=== PATIENT | female | born 1940 | race Caucasian/White ===

== ENCOUNTER 2016-07-03 15:36 | Emergency (ER) | payer MEDICARE, BC ==
[2016-07-03] MEDS ORDERED: MORPHINE SULFATE 10 MG/ML INJ IV ONE ×2 (16:32→18:16)
--- NOTE | 2016-07-03 16:37 | ER Document Report ---
ED General - General Chief Complaint: Fall Stated Complaint: FALL/HAND PAIN Time seen by provider: 16:34 Mode of Arrival: Medic Information source: Patient Notes: 75-year-old female fell on a staircase down 7-10 steps shortly prior to arrival. She reports no loss of consciousness and did not strike her head. She complains about pain to the lateral right thigh and pain to the right wrist and was noted by EMS to have an obvious deformity to the right wrist. Patient has no complaints of pain in the left arm or leg and denies chest pain, abdominal pain, back pain, or shortness of breath. Physical Exam: General: Alert, appears well. HEENT: Normocephalic. Atraumatic. PERRLA. Extraocular movements intact. Oropharynx clear. No otorhinorrhea Neck: Supple. Non-tender. Respiratory: No respiratory distress. Clear and equal breath sounds bilaterally. Cardiovascular: Regular rate and rhythm. Abdominal: Normal Inspection. Soft, non-tender. No distension. Normal Bowel Sounds. Back: Non-tender. No deformity or step off. Left upper and lower extremities good range of motion without obvious deformity. Right upper extremity is in sling and splint with obvious bruising and deformity to the right wrist. Does have palpable radial and ulnar pulses. Right lower extremity has mild discomfort palpation of the midshaft of the right femur laterally there is no ecchymosis present. She has 2+ pulses all 4 extremities and brisk capillary refill Neurological: Speech clear mentation normal Psychological: Normal affect. Normal Mood. Skin: Warm. Dry. Normal color. TRAVEL OUTSIDE OF THE [place] IN LAST 30 DAYS: No - Related Data Allergies/Adverse Reactions: codeine [Codeine] Allergy (Intermediate, Verified 12/12/14 13:28) Hives erythromycin base [Erythromycin Base] Allergy (Intermediate, Verified 12/12/14 13:28) "crazy",crying Past Medical History - Social History Smoking Status: Never Smoker Family History: Reviewed & Not Pertinent - Past Medical History Cardiac Medical History: Reports: Hx Heart Attack - [place] age undetermined, Hx Hypertension Denies: Hx Coronary Artery Disease Pulmonary Medical History: Reports: Hx Asthma - uses O2 at ayesha time only, Hx Bronchitis - prior to xolair tx, Hx Pneumonia Denies: Hx COPD Neurological Medical History: Denies: Hx Cerebrovascular Accident, Hx Seizures Musculoskeltal Medical History: Reports Hx Arthritis - DDD low back Past Surgical History: Reports: Hx Cholecystectomy - Immunizations Hx Diphtheria, Pertussis, Tetanus Vaccination: Yes Hx Pneumococcal Vaccination: 04/28/04 Review of Systems - Review of Systems Constitutional: denies: Chills, Fever EENT: denies: Ear pain, Throat pain Cardiovascular: denies: Chest pain, Dyspnea, Syncope Respiratory: denies: Cough, Short of breath Gastrointestinal: denies: Abdominal pain, Nausea, Vomiting Female Genitourinary: Post menopausal Musculoskeletal: denies: Back pain Hematologic/Lymphatic: denies: Swollen glands Neurological/Psychological: denies: Weakness, Numbness Physical Exam - Vital signs Vitals: Temp Pulse Resp BP Pulse Ox 98.7 F 76 15 159/63 H 96 07/03/16 15:42 07/03/16 15:42 07/03/16 15:42 07/03/16 15:42 07/03/16 15:42 Course - Re-evaluation Re-evalutation: 07/03/16 18:25 Case was discussed with Dr. Solano orthopedics. He requests patient be splinted and come to the office tomorrow as fracture is likely going to require operative reduction patient will be splinted here provided with a sling discharged with medication for pain and given outpatient follow-up instructions - Vital Signs Vital signs: Temp Pulse Resp BP Pulse Ox 98.7 F 76 15 159/63 H 96 07/03/16 15:42 07/03/16 15:42 07/03/16 15:42 07/03/16 15:42 07/03/16 15:42 - Diagnostic Test Radiology reviewed: Image reviewed, Reports reviewed Discharge - Discharge Clinical Impression: Wrist fracture, closed Qualifiers: Encounter type: initial encounter Laterality: right Qualified Code(s): S62.101A - Fracture of unspecified carpal bone, right wrist, initial encounter for closed fracture Contusion of right thigh Qualifiers: Encounter type: initial encounter Qualified Code(s): S70.11XA - Contusion of right thigh, initial encounter Condition: Stable Disposition: HOME, SELF-CARE Additional Instructions: Sling to be Used You are to use a sling. This is to rest the area, and to prevent it from hanging downward. Use this sling for at least 48 hours (or longer if so instructed by the doctor). Some types of splints will break if not supported by the sling, so the sling must be used as long as the splint. Ice can be placed inside the sling over the injured area. Once you remove the sling, you should not encounter pain when you use the arm and hand. If you do feel pain beneath the cast or splint, you must continue use of the sling. Splint Pending Casting Your injury can't be casted until the swelling has subsided. Therefore, a temporary splint has been placed to protect the injury. Full use of an injured area is not possible in a splint. You should follow the doctor's instructions concerning rest, ice, and elevation of the injury. Never do anything which causes pain under the splint. Keep the splint on ALL THE TIME until you return for casting. If there is unexpected severe pain, or numbness, discoloration, or swelling beyond the splint, you should return at once. I have spoken with Dr. Panda Arizmendi on-call for orthopedics. He requested that you have a splint placed here wrist fracture and contact his office tomorrow for follow-up and possible surgery. Prescriptions: Hydrocodone/Acetaminophen [Vicodin 5-300 mg Tablet] 1 each PO Q6HP PRN #20 tablet PRN Reason: For Pain Referrals: IRISH HAMILTON MD [Primary Care Provider] - Follow up as needed PANDA SYKES MD [ACTIVE STAFF] - Follow up tomorrow
[2016-07-03 19:28] VITALS: BP 163/68
[2016-07-03] MEDS ORDERED: HYDROCODONE/ACETAMINOPHEN 5-325 MG TABLET PO ONE (19:28)
== END 2016-07-03 19:30 | disposition home or self-care (01) ==
LOC: ER 15:36
DX: S62.101A Fracture of unspecified carpal bone, right wrist, initial encounter for closed fracture (principal); S70.11XA Contusion of right thigh, initial encounter; W10.9XXA Fall (on) (from) unspecified stairs and steps, initial encounter; I10 Essential (primary) hypertension; J45.909 Unspecified asthma, uncomplicated; Z90.49 Acquired absence of other specified parts of digestive tract; Z88.6 Allergy status to analgesic agent; Z88.3 Allergy status to other anti-infective agents; I25.2 Old myocardial infarction
CPT/HCPCS: 99283; 96374; 73070; 73552; 73090; 73110; J2270; A9270

== ENCOUNTER → 2016-07-09 | Outpatient (CLI) | payer MEDICARE, BC ==
[2016-07-09 11:47] LABS: APPEARANCE,URINE CLEAR; BILIRUBIN,URINE NEGATIVE (NEGATIVE); GLUCOSE, URINE NEGATIVE (NEGATIVE); KETONES,URINE NEGATIVE (NEGATIVE); LEUKOCYTE ESTERASE,URINE TRACE (NEGATIVE); NITRITE,URINE NEGATIVE (NEGATIVE); PROTEIN,URINE NEGATIVE (NEGATIVE); URINE SPECIFIC GRAVITY 1.005; UROBILINOGEN,URINE NEGATIVE mg/dL (<2.0)
[2016-07-09 11:49] LABS: ABSOLUTE LYMPHOCYTES (AUTO) 1.5 10^3/uL (0.5-4.7); ABSOLUTE MONOCYTES (AUTO) 0.4 10^3/uL (0.1-1.4); BASOPHILS % (AUTO) 0.6 % (0-2); EOSINOPHILS % (AUTO) 0.6 % (0-6); HEMATOCRIT 38.2 % (36.0-47.0); HEMOGLOBIN 13.6 g/dL (12.0-15.5); HGB HCT DIFFERENCE 2.6; LYMPHOCYTES % (AUTO) 21.4 % (13-45); MEAN CORPUSCULAR HEMOGLOBIN 31.7 pg (27.0-33.4); MEAN CORPUSCULAR HGB CONC 35.6 g/dL (32.0-36.0); MEAN CORPUSCULAR VOLUME 89 fl (80-97); MONOCYTES % (AUTO) 5.9 % (3-13); RED BLOOD COUNT 4.29 10^6/uL (3.72-5.28); RED CELL DISTRIBUTION WIDTH 13.6 % (11.5-14.0); SEGMENTED NEUTROPHILS % (AUTO) 71.5 % (42-78)
[2016-07-09 12:04] LABS: ANION GAP 15 (5-19); BLOOD UREA NITROGEN 15 mg/dL (7-20); CALCIUM 10.4 mg/dL (8.4-10.2); CARBON DIOXIDE 28 mmol/L (22-30); CHLORIDE 98 mmol/L (98-107); CREATININE RESULT 0.78 mg/dL (0.52-1.25); GLUCOSE 119 mg/dL (75-110); POTASSIUM 4.1 mmol/L (3.6-5.0); SODIUM 140.5 mmol/L (137-145)
== END ==
LOC: OD 10:52
PROVIDERS: ATTEND Orthopaedic Surgery
DX: Z01.811 Encounter for preprocedural respiratory examination (principal); Z01.818 Encounter for other preprocedural examination; Z01.89 Encounter for other specified special examinations
CPT/HCPCS: 36415; 71020; 80048; 81001; 85025

== ENCOUNTER 2016-07-11 09:49 | Day surgery (SDC) | payer MEDICARE, BC ==
[~2016-07-11 09:49] MED LIST: CEFAZOLIN 2 GM/D5W RTU 2 GM/50 ML RTUPB IV PRN
[2016-07-11] MEDS ORDERED: LIDOCAINE 2%/EPINEPHRINE INJ 20 ML VIAL ONE (11:00)
[2016-07-11] MEDS ORDERED: LIDOCAINE 2% INJ (20 MG/ML) 20 ML MDV ONE (11:01)
[2016-07-11] MEDS ORDERED: ROPIVACAINE HCL 0.5% INJ/PF (5 MG/1 ML) 30 ML SDV ONE (11:01)
[2016-07-11] MEDS ORDERED: GLYCOPYRROLATE INJ 0.4 MG/2 ML VIAL ONE (11:44)
[2016-07-11] MEDS ORDERED: SUCCINYLCHOLINE CHLORIDE INJ 200 MG/10 ML VIAL ONE (11:44)
[2016-07-11] MEDS ORDERED: MIDAZOLAM 2 MG/2 ML INJ ONE ×3 (12:13→12:25)
[2016-07-11] MEDS ORDERED: KETAMINE HCL INJ 500 MG/10 ML VIAL ONE (12:24)
[2016-07-11] MEDS ORDERED: DEXAMETHASONE SOD PHOSPHATE INJ 4 MG/1 ML VIAL ONE (12:24)
[2016-07-11] MEDS ORDERED: ONDANSETRON HCL INJ/PF 4 MG/2 ML SDV ONE (12:24)
[2016-07-11] MEDS ORDERED: PROPOFOL INJ 200 MG/20 ML VIAL IV ONE (12:25)
[2016-07-11] MEDS ORDERED: ACETAMINOPHEN 100 ML IV ONE (13:09)
[2016-07-11] MEDS ORDERED: MEPERIDINE HCL/PF INJ 25 MG/1 ML DISP.SYRIN IV PRN (13:33)
[2016-07-11] MEDS ORDERED: PROMETHAZINE HCL INJ 25 MG/1 ML VIAL IV PRN ×2 (13:33)
[2016-07-11] MEDS ORDERED: DIPHENHYDRAMINE HCL 50 MG/ML VIAL IV PRN (13:33)
[2016-07-11] MEDS ORDERED: FENTANYL CITRATE INJ/PF 100 MCG/2 ML AMPUL IV PRN ×3 (13:33)
[2016-07-11] MEDS ORDERED: MORPHINE SULFATE 10 MG/ML INJ IV PRN (13:33)
[2016-07-11] MEDS ORDERED: BUPIVACAINE HCL 0.25 % INJ/PF (2.5 MG/1 ML) 30 ML VIAL ONE (14:06)
--- NOTE | 2016-07-11 14:50 | Operative Report ---
Operative Report DATE OF SURGERY: 07/11/16 PREOPERATIVE DIAGNOSIS: Comminuted and displaced right distal radius fracture POSTOPERATIVE DIAGNOSIS: Same OPERATION: ORIF of right distal radius fracture SURGEON: PANDA DANIELSON ANESTHESIA: GA TISSUE REMOVED OR ALTERED: None COMPLICATIONS: None ESTIMATED BLOOD LOSS: 25 mL INTRAOPERATIVE FINDINGS: As above PROCEDURE: Procedure In Detail: Patient was seen and evaluated in the preoperative holding area. The right upper extremity was initialized and marked. Patient received 2g of Ancef IV for bacterial prophylaxis. Patient was taken back to the operative room where transferred to the operative table and placed under general anesthesia. Once they were adequately anesthetized and a nonsterile tourniquet was placed on her right upper extremity. A surgical team debriefing was performed ensuring all instrumentation was available, the surgical procedure was discussed with possible concerns reviewed. The right upper extremity was prepped with chlorhexidine and alcohol and draped in a sterile fashion. A timeout was done identifying correct patient, procedure and extremity everyone in attendance agree with this and verbalized no concerns.The extremity was exsanguinated the tourniquet was inflated to 250 mmHg. A longitudinal skin incision was made via a volar approach of Harvey along the FCR tendon sheath. The FCR tendon sheath was opened and the FCR retracted ulnarly, the palmar cutaneous patient median nerve was identified and protected throughout the entirety of the case. The radial artery was identified and retracted radially. Dissection was done down to the FPL which was carefully sweeped ulnarly. This brought me to the pronator quadratus which was elevated off of the distal radius via sharp dissection with a 15 blade to allow later repair. The fracture was then identified and a gentle reduction was performed. A near anatomic reduction was then obtained and a Irina 3 hole volar distal radius plate was then placed into position and fixated with a K wire proximally x2. AP and lateral radiographs were then obtained demonstrating appropriate placement of the plate and near anatomic reduction of the fracture. I then used a large reduction tenaculum bringing the plate down to bone distally. I drilled the near cortex and placed a cortical screw bringing the plate further down to bone, avoiding any liftoff of the plate from the volar cortex that could cause flexor tendon irritation post-operativley. I then drilled the near cortex and to but not thru the far cortex and measured the appropriate size screw, locking screws were then placed in the remaining holes. The previous cortex screw was removed and replaced with a locking screw. I then drilled 2 additional screws were placed into the styloid giving further stability to the radial styloid piece. AP and lateral radius were then done confirming appropriate placement of plate with no evidence of penetration intra-articular or within the DRUJ. I then turned my attention to the proximal screws. I drilled bicortically bringing the plate down to bone with a cortex screw. The remaining 2 holes proximally were drilled bicortically placing the appropriate size cortex and the proximal most hole and a locking screw in the distal shaft hole. AP and lateral radiographs were done confirming appropriate placement of the plate and reduction of the fracture there was protestant of radial height, radial inclination and volar tilt. No evidence of dorsal screw prominence or intra-articular penetration of the DRUJ or radiocarpal joint. I then copious irrigated the wound with normal saline. There was no evidence of DRUJ instability on examination, No crepitus with range of motion at the radiocarpal joint or DRUJ. I then closed the pronator quadratus with interrupted 3-0 Monocryl suture. Subcutaneous tissues were closed with interrupted 3-0 Vicryl suture. The skin was closed with 3-0 nylon suture. 10 mL of 0.5% Marcaine were injected for postoperative pain control. The tourniquet was then deflated. Was dressed with sterile 4 x 4's and patient was placed in a well-padded volar splint with bias wrap. Sponge counts, instrument counts and needle counts were correct. There was no intraoperative complications patient tolerated procedure well stable to PACU. Postoperative plan: Patient will be switched to a removal brace at her first postoperative followup visit and begin range of motion. She is encouraged to start vitamin C 500 mg daily for 51 days. Will obtain radiographs at followup of the wrist.
[2016-07-11] MEDS ORDERED: OXYCODONE-ACETAMINOPHEN 5-325 MG TABLET PO PRN ×2 (14:53)
--- NOTE | 2016-07-11 14:53 | PDOC DISCHARGE SUMMARY ---
Discharge Summary (SDC) - Discharge Final Diagnosis: ORIF of right distal radius fracture Date of Surgery: 07/11/16 Discharge Date: 07/11/16 Condition: Good Treatment or Instructions: Keep splint and dressing dry clean and intact until follow-up in 2 weeks. Mild weight-bear right upper extremity Prescriptions: Oxycodone HCl/Acetaminophen [Percocet 5-325 mg Tablet] 1 - 2 tab PO ASDIR PRN # 60 tablet PRN Reason: Discharge Diet: As Tolerated Respiratory Treatments at Home: Deep Breathing/Coughing Discharge Activity: No Lifting/Push/Pulling, Walk Frequently, Other - Keep right upper extremity elevated Report the Following to Your Physician Immediately: Shortness of Breath, Vomiting, Increase in Pain, Fever over 101 Degrees, Unusual Bleeding, Redness, Swelling, Warmth, Drainage-Yellow, Drainage-Green, Drainage-Foul Smelling
[2016-07-11 18:01] VITALS: BP 133/75
== END 2016-07-11 17:15 | disposition home or self-care (01) ==
LOC: OROUT 09:49
PROVIDERS: ATTEND Orthopaedic Surgery
PROC: 0PSH04Z Reposition Right Radius with Internal Fixation Device, Open Approach (ICD-10-PCS; principal; 2016-07-11 12:00)
DX: S52.531D Colles' fracture of right radius, subsequent encounter for closed fracture with routine healing (principal); W10.8XXA Fall (on) (from) other stairs and steps, initial encounter; Y92.009 Unspecified place in unspecified non-institutional (private) residence as the place of occurrence of the external cause; J44.9 Chronic obstructive pulmonary disease, unspecified; I20.9 Angina pectoris, unspecified; I50.9 Heart failure, unspecified; M19.90 Unspecified osteoarthritis, unspecified site; E11.9 Type 2 diabetes mellitus without complications; H54.8 Legal blindness, as defined in USA; I10 Essential (primary) hypertension; Z88.5 Allergy status to narcotic agent; Z88.1 Allergy status to other antibiotic agents; Z88.8 Allergy status to other drugs, medicaments and biological substances; Z79.899 Other long term (current) drug therapy; Z79.84 Long term (current) use of oral hypoglycemic drugs
CPT/HCPCS: 82962; 73100; 25607; J2795; J2250; J3490 ×3; J1100; J0330; J2405; J2704; J0690; J0131; 01830; C1713

== ENCOUNTER → 2016-10-04 | Outpatient (CLI) | payer MEDICARE, BC ==
[2016-10-04 14:23] LABS: ANION GAP 17 (5-19); BLOOD UREA NITROGEN 13 mg/dL (7-20); CALCIUM 9.6 mg/dL (8.4-10.2); CARBON DIOXIDE 26 mmol/L (22-30); CHLORIDE 100 mmol/L (98-107); CHOLESTEROL 218.82 mg/dL (0-200); CREATININE RESULT 0.91 mg/dL (0.52-1.25); Direct HDL 36 mg/dL (>40); GLUCOSE 96 mg/dL (75-110); POTASSIUM 4.1 mmol/L (3.6-5.0); SODIUM 142.8 mmol/L (137-145); TRIGLYCERIDES 170 mg/dL (<150)
[2016-10-04 14:42] LABS: DIRECT LDL 128 mg/dL (<100)
== END ==
LOC: OD 12:52
PROVIDERS: ATTEND Internal Medicine Cardiovascular Disease
DX: E78.00 Pure hypercholesterolemia, unspecified (principal); Z79.899 Other long term (current) drug therapy
CPT/HCPCS: 36415; 80048; 80061

== ENCOUNTER 2017-10-08 17:35 | Inpatient (IN) | payer MEDICARE, BC ==
[2017-10-08] MEDS ORDERED: NORMAL SALINE 1000 ML 1,000 ML IV ONE (19:01)
[2017-10-08] MEDS ORDERED: ONDANSETRON 4 MG TAB.RAPDIS PO ONE (19:01)
--- NOTE | 2017-10-08 19:03 | ER Document Report ---
ED Medical Screen (RME) - General Chief Complaint: General Weakness Stated Complaint: WEAKNESS Time Seen by Provider: 10/08/17 18:57 TRAVEL OUTSIDE OF THE [place] IN LAST 30 DAYS: No - HPI Notes: 10/08/17 19:02 Diarrhea nausea vomiting generalized weakness since Friday - Related Data Allergies/Adverse Reactions: codeine [Codeine] Allergy (Intermediate, Verified 10/08/17 17:36) Hives erythromycin base [Erythromycin Base] Allergy (Intermediate, Verified 10/08/17 17:36) "crazy",crying Past Medical History - Past Medical History Cardiac Medical History: Reports: Hx Heart Attack - [place] age undetermined, Hx Hypertension Denies: Hx Coronary Artery Disease Pulmonary Medical History: Reports: Hx Asthma - uses O2 at ayesha time only, Hx Bronchitis - prior to xolair tx, Hx Pneumonia Denies: Hx COPD Neurological Medical History: Denies: Hx Cerebrovascular Accident, Hx Seizures Musculoskeltal Medical History: Reports Hx Arthritis - DDD low back Past Surgical History: Reports: Hx Cholecystectomy - Immunizations Hx Diphtheria, Pertussis, Tetanus Vaccination: Yes Review of Systems - Review of Systems Gastrointestinal: Diarrhea, Nausea, Vomiting -: Yes All other systems reviewed and negative Physical Exam - Vital signs Vitals: Temp Pulse Resp BP Pulse Ox 98.2 F 76 20 121/57 L 93 10/08/17 17:49 10/08/17 17:49 10/08/17 17:49 10/08/17 17:49 10/08/17 17:49 - Respiratory Respiratory status: No respiratory distress Chest status: Nontender Breath sounds: Normal Chest palpation: Normal Course - Vital Signs Vital signs: Temp Pulse Resp BP Pulse Ox 98.2 F 76 20 121/57 L 93 10/08/17 17:49 10/08/17 17:49 10/08/17 17:49 10/08/17 17:49 10/08/17 17:49 Doctor's Discharge - Discharge Referrals: IRISH HAMILTON MD [Primary Care Provider] - Follow up as needed
[2017-10-08 19:37] LABS: ABSOLUTE EOSINOPHILS # (AUTO) 0.1 10^3/uL (0.0-0.6); ABSOLUTE LYMPHOCYTES (AUTO) 1.2 10^3/uL (0.5-4.7); ABSOLUTE MONOCYTES (AUTO) 1.2 10^3/uL (0.1-1.4); ABSOLUTE NEUT (AUTO) 5.6 10^3/uL (1.7-8.2); BASOPHILS % (AUTO) 0.4 % (0-2); EOSINOPHILS % (AUTO) 0.9 % (0-6); HEMATOCRIT 40.3 % (36.0-47.0); HEMOGLOBIN 14.4 g/dL (12.0-15.5); LYMPHOCYTES % (AUTO) 15.2 % (13-45); MEAN CORPUSCULAR HEMOGLOBIN 31.5 pg (27.0-33.4); MEAN CORPUSCULAR HGB CONC 35.7 g/dL (32.0-36.0); MEAN CORPUSCULAR VOLUME 88 fl (80-97); MONOCYTES % (AUTO) 14.7 % (3-13); PLATELET COUNT 288 10^3/uL (150-450); RED BLOOD COUNT 4.57 10^6/uL (3.72-5.28); SEGMENTED NEUTROPHILS % (AUTO) 68.8 % (42-78); TOTAL CELLS COUNTED % (AUTO) 100 %; WHITE BLOOD COUNT 8.1 10^3/uL (4.0-10.5)
[2017-10-08 19:54] LABS: ALANINE AMINOTRANSFERASE 17 U/L (9-52); ALBUMIN 4.6 g/dL (3.5-5.0); ALKALINE PHOSPHATASE 75 U/L (38-126); ANION GAP 19 (5-19); ASPARTATE AMINO TRANSFERASE 19 U/L (14-36); BILIRUBIN,DIRECT 0.4 mg/dL (0.0-0.4); BILIRUBIN,TOTAL 0.6 mg/dL (0.2-1.3); BLOOD UREA NITROGEN 38 mg/dL (7-20); CALCIUM 9.5 mg/dL (8.4-10.2); CARBON DIOXIDE 24 mmol/L (22-30); CHLORIDE 96 mmol/L (98-107); GLUCOSE 122 mg/dL (75-110); LIPASE 69.9 U/L (23-300); POTASSIUM 3.4 mmol/L (3.6-5.0); SODIUM 138.9 mmol/L (137-145); TOTAL PROTEIN 7.7 g/dL (6.3-8.2)
--- NOTE | 2017-10-08 20:37 | ER Document Report ---
ED Dizziness/Weakness - General Mode of Arrival: Ambulatory Information source: Patient TRAVEL OUTSIDE OF THE [place] IN LAST 30 DAYS: No <BRANDON PHIPPS - Last Filed: 10/08/17 22:48> <ALENA VELIZ - Last Filed: 10/09/17 01:35> - General Chief Complaint: General Weakness Stated Complaint: WEAKNESS Time Seen by Provider: 10/08/17 18:57 Notes: 77 y.o female presents to the ED with nausea, abd pain and diarrhea of onset Friday night, October 05 2017. Pt reports not being able to eat or drink much since the onset of her sx but reports that she was able to eat a banana yesterday. Pt admits some frequent urinary urgency but has been unable to urinate much. Pt denies any known fever or vomiting. She denies any nausea or abd pain currently. Pt reports a PSHx of abd hernia repair and a cholecystectomy but no recent abd surgeries. Pt denies any hx of colon infections. Pt's PCP is Dr. Abarca. (BRANDON PHIPPS) - Related Data Allergies/Adverse Reactions: codeine [Codeine] Allergy (Intermediate, Verified 10/08/17 17:36) Hives erythromycin base [Erythromycin Base] Allergy (Intermediate, Verified 10/08/17 17:36) "crazy",crying Past Medical History - General Information source: Patient - Social History Smoking Status: Never Smoker Chew tobacco use (# tins/day): No Frequency of alcohol use: None Drug Abuse: None Family History: Reviewed & Not Pertinent Patient has suicidal ideation: No Patient has homicidal ideation: No - Past Medical History Cardiac Medical History: Reports: Hx Heart Attack - [place] age undetermined, Hx Hypertension Pulmonary Medical History: Reports: Hx Asthma - uses O2 prn, Hx Bronchitis - prior to xolair tx, Hx Pneumonia Renal/ Medical History: Reports: Hx End Stage Renal Disease. Denies: Hx Peritoneal Dialysis Musculoskeltal Medical History: Reports Hx Arthritis - DDD low back Past Surgical History: Reports: Hx Cholecystectomy, Other - hernia repair - Immunizations Hx Diphtheria, Pertussis, Tetanus Vaccination: Yes Hx Pneumococcal Vaccination: 04/28/04 <BRANDON PHIPPS - Last Filed: 10/08/17 22:48> Review of Systems - Review of Systems Constitutional: See HPI. denies: Fever EENT: No symptoms reported Cardiovascular: No symptoms reported Respiratory: No symptoms reported Gastrointestinal: See HPI, Abdominal pain, Diarrhea, Nausea. denies: Vomiting Genitourinary: See HPI, Urgency, Retention Female Genitourinary: No symptoms reported Musculoskeletal: No symptoms reported Skin: No symptoms reported Hematologic/Lymphatic: No symptoms reported Neurological/Psychological: No symptoms reported -: Yes All other systems reviewed and negative <BRANDON PHIPPS - Last Filed: 10/08/17 22:48> Physical Exam <BRANDON PHIPPS - Last Filed: 10/08/17 22:48> <ALENA VELIZ - Last Filed: 10/09/17 01:35> - Vital signs Vitals: Temp Pulse Resp BP Pulse Ox 98.2 F 76 20 121/57 L 93 10/08/17 17:49 10/08/17 17:49 10/08/17 17:49 10/08/17 17:49 10/08/17 17:49 - Notes Notes: Physical Exam: General: Alert, appears well. HEENT: Normocephalic. Atraumatic. PERRL. Bilateral nystagmus at baseline. Dry mucous membranes. Neck: Supple. Non-tender. Respiratory: No respiratory distress. Clear and equal breath sounds bilaterally. Cardiovascular: Regular rate and rhythm. Abdominal: Normal Inspection. Non-tender. No distension. Normal Bowel Sounds. Back: Non-tender. No deformity or step off. Extremities: Moves all four extremities. Upper extremities: Normal inspection. Normal ROM. Lower extremities: Normal inspection. No edema. Normal ROM. Neurological: Normal cognition. AAOx3. Normal speech. Psychological: Normal affect. Normal Mood. Skin: Warm. Dry. Normal color. (BRANDON PHIPPS) Course - Laboratory Result Diagrams: 10/08/17 19:28 10/08/17 19:28 <BRANDON PHIPPS - Last Filed: 10/08/17 22:48> - Laboratory Result Diagrams: 10/08/17 19:28 10/08/17 19:28 <ALENA VELIZ - Last Filed: 10/09/17 01:35> - Re-evaluation Re-evalutation: 10/08/17 20:[address] Mao in person who agrees to admit pt. (BRANDON PHIPPS) Patient is a 77-year-old female who comes in with vomiting and diarrhea over the last 4 days. Patient ate a banana yesterday but has had difficulty keeping anything down today due to nausea. Patient's baseline creatinine is 0.9 as of last year. Today it is 2.85. Patient does not have any abdominal pain or tenderness. Due to her acute renal insufficiency and age, patient will be kept for IV fluid resuscitation and monitoring of her kidneys for improvement. Patient and family are agreeable to this plan. Stable time of admission to the hospitalist service. Of note, we have been unable to get urine. Patient did not want to do catheter. States that she has had some dribbling while she has been in the emergency department. Stool culture ordered but no stool obtained yet. (ALENA VELIZ) - Vital Signs Vital signs: Temp Pulse Resp BP Pulse Ox 98.5 F 62 14 112/47 L 96 10/09/17 00:47 10/09/17 00:47 10/09/17 00:47 10/09/17 00:47 10/09/17 00:47 - Laboratory Laboratory results interpreted by me: 10/08/17 10/08/17 19:28 19:28 Monocytes % 14.7 H Potassium 3.4 L Chloride 96 L BUN 38 H Creatinine 2.85 H Est GFR ( Amer) 19 L Est GFR (Non-Af Amer) 16 L Glucose 122 H Discharge <BRANDON PHIPPS - Last Filed: 10/08/17 22:48> - Discharge Admitting Provider: Hospitalist - [facility] Unit Admitted: Telemetry <ALENA VELIZ - Last Filed: 10/09/17 01:35> - Discharge Clinical Impression: Dehydration, Acute renal insufficiency, Hypokalemia Vomiting Qualifiers: Vomiting type: unspecified Vomiting Intractability: non-intractable Nausea presence: with nausea Qualified Code(s): R11.2 - Nausea with vomiting, unspecified Diarrhea Qualifiers: Diarrhea type: unspecified type Qualified Code(s): R19.7 - Diarrhea, unspecified Condition: Stable Disposition: ADMITTED INPATIENT Scribe Attestation: 10/09/17 01:35 I personally performed the services described in the documentation, reviewed and edited the documentation which was dictated to the scribe in my presence, and it accurately records my words and actions. (ALENA VELIZ) Scribe Documentation - Scribe Written by Marylu:: Marylu Argueta [id number]/08/[id number] acting as scribe for :: Rosa <BRANDON PHIPPS - Last Filed: 10/08/17 22:48>
[2017-10-08] MEDS ORDERED: ACETAMINOPHEN 325 MG TABLET PO PRN (20:57)
[2017-10-08] MEDS ORDERED: ONDANSETRON HCL INJ/PF 4 MG/2 ML SDV IV PRN (20:57)
[2017-10-08] MEDS ORDERED: DEXTROSE 50%-WATER 25 GM/50 ML DISP.SYRIN IV PRN ×2 (21:02)
[2017-10-08] MEDS ORDERED: GLUCAGON,HUMAN RECOMB 1 MG INJ IM PRN (21:02)
[2017-10-08] MEDS ORDERED: DEXTROSE 40% GEL 15 GM TUBE PO PRN ×2 (21:02)
[2017-10-08] MEDS ORDERED: INSULIN LISPRO 100 UNIT/ML 3 ML VIAL SUBCUT PRN (21:02)
--- NOTE | 2017-10-08 21:13 | PDOC H&P ---
History of Present Illness Admission Date/PCP: IRISH HAMILTON MD History of Present Illness: DEMETRIS MOSS is a 77 year old female patient with past medical history of hypertension, CHF, borderline diabetes mellitus and legally blind presented with 3 days history of diarrhea, nausea, vomiting and poor oral intake. She reports on Friday after she [place] started to have sudden onset chills, nausea vomiting of ingested material and frequent watery diarrhea. Patient denies eating out or any family member with similar illness. After she took Imodium the frequency of her diarrhea is decreasing. Her her blood work shows creatinine of 2.85 and her baseline creatinine is 1. She denies any urgency frequency or dysuria. She does not have any headache, blurring of vision or dizziness. Past Medical History Cardiac Medical History: Reports: Myocardial Infarction - PA age undetermined, Hypertension Denies: Coronary Artery Disease Pulmonary Medical History: Reports: Asthma - uses O2 prn, Bronchitis - prior to xolair tx, Pneumonia Denies: Chronic Obstructive Pulmonary Disease (COPD) Neurological Medical History: Denies: Seizures Renal/ Medical History: Reports: End Stage Renal Disease Musculoskeltal Medical History: Reports: Arthritis - DDD low back Hematology: Denies: Anemia Past Surgical History Past Surgical History: Reports: Cholecystectomy, Other - hernia repair Social History Smoking Status: Never Smoker Frequency of Alcohol Use: None Hx Recreational Drug Use: No Drugs: None - Advance Directive Resuscitation Status: Full Code Family History Family History: Reviewed & Not Pertinent, DM, Hypertension Parental Family History Reviewed: Yes Children Family History Reviewed: Yes Sibling(s) Family History Reviewed.: Yes Medication/Allergy Home Medications: Aspirin [Ecotrin] 1 tab PO DAILY 12/12/14 Furosemide [Lasix 40 mg Tablet] 40 mg PO DAILY 12/12/14 Metformin HCl 1,000 mg PO ACSUPPER 12/12/14 Omalizumab [Xolair Inj 150 mg Vial] 1 dose SUBCUT [id number] 12/12/14 Omeprazole 20 mg PO DAILY 12/12/14 Chlorthalidone [Chlorthalidone 25 mg Tablet] 25 mg PO Q48H 12/15/14 Biotin 1 cap PO DAILY 07/10/16 Diltiazem HCl [Cartia Xt] 1 cap PO BID 07/10/16 Nitroglycerin [Nitrostat] 1 tab SL ASDIR PRN 07/10/16 Lorraine-3S/Dha/Epa/Fish Oil [Fish Oil 1,200 mg Softgel] 1 cap PO BID 07/10/16 Valsartan [Diovan 160 mg Tablet] 1 tab PO DAILY 07/10/16 Oxycodone HCl/Acetaminophen [Percocet 5-325 mg Tablet] 1 - 2 tab PO ASDIR PRN # 60 tablet 07/11/16 Allergies/Adverse Reactions: codeine [Codeine] Allergy (Intermediate, Verified 10/08/17 17:36) Hives erythromycin base [Erythromycin Base] Allergy (Intermediate, Verified 10/08/17 17:36) "crazy",crying Review of Systems Constitutional: PRESENT: as per HPI Eyes: PRESENT: as per HPI Nose, Mouth, and Throat: PRESENT: as per HPI Cardiovascular: PRESENT: as per HPI Respiratory: PRESENT: as per HPI Gastrointestinal: PRESENT: as per HPI Neurological: PRESENT: as per HPI Physical Exam Vital Signs: Temp Pulse Resp BP Pulse Ox 97.8 F 64 18 127/53 H 98 10/08/17 20:19 10/08/17 20:19 10/08/17 20:19 10/08/17 20:19 10/08/17 20:19 Intake & Output 10/07/17 10/08/17 10/09/17 06:59 06:59 06:59 Weight 69.5 kg General appearance: PRESENT: no acute distress, well-developed, well-nourished Eye exam: PRESENT: conjunctiva pink, EOMI, PERRLA. ABSENT: scleral icterus Mouth exam: PRESENT: dry mucosa Neck exam: ABSENT: carotid bruit, JVD, lymphadenopathy, thyromegaly Respiratory exam: PRESENT: clear to auscultation malgorzata. ABSENT: rales, rhonchi, wheezes Cardiovascular exam: PRESENT: RRR. ABSENT: diastolic murmur, rubs, systolic murmur Pulses: PRESENT: normal dorsalis pedis pul GI/Abdominal exam: PRESENT: normal bowel sounds, soft. ABSENT: distended, guarding, mass, organolmegaly, rebound, tenderness Extremities exam: PRESENT: full ROM. ABSENT: calf tenderness, clubbing, pedal edema Neurological exam: PRESENT: alert, awake, oriented to time, reflexes normal Results Laboratory Results: 10/08/17 19:28 10/08/17 19:28 10/08/17 10/08/17 19:28 19:28 WBC 8.1 RBC 4.57 Hgb 14.4 Hct 40.3 MCV 88 MCH 31.5 MCHC 35.7 RDW 14.0 Plt Count 288 Seg Neutrophils % 68.8 Lymphocytes % 15.2 Monocytes % 14.7 H Eosinophils % 0.9 Basophils % 0.4 Absolute Neutrophils 5.6 Absolute Lymphocytes 1.2 Absolute Monocytes 1.2 Absolute Eosinophils 0.1 Absolute Basophils 0.0 Sodium 138.9 Potassium 3.4 L Chloride 96 L Carbon Dioxide 24 Anion Gap 19 BUN 38 H Creatinine 2.85 H Est GFR ( Amer) 19 L Est GFR (Non-Af Amer) 16 L Glucose 122 H Calcium 9.5 Total Bilirubin 0.6 AST 19 ALT 17 Alkaline Phosphatase 75 Total Protein 7.7 Albumin 4.6 Lipase 69.9 Assessment & Plan - Diagnosis (1) Acute kidney injury Is this a current diagnosis for this admission?: Yes Plan: It is prerenal as a teenager due to dehydration. We cautiously hydrate her since patient has underlying congestive heart failure. We will monitor her BMP in the morning. (2) Hypertension Qualifiers: Hypertension type: essential hypertension Qualified Code(s): I10 - Essential (primary) hypertension Is this a current diagnosis for this admission?: Yes Plan: Continue her home medications (3) CHF (congestive heart failure) Qualifiers: Heart failure chronicity: unspecified Is this a current diagnosis for this admission?: Yes Plan: Compensated. Continue her home medications. (4) Type 2 diabetes mellitus Is this a current diagnosis for this admission?: Yes Plan: I would hold her metformin and start her on sliding scale - Time Time Spent: 30 to 50 Minutes - Inpatient Certification Medical Necessity: Need Close Monitoring Due to Risk of Patient Decompensation, Need For IV Fluids
[2017-10-08] MEDS: NORMAL SALINE 1000 ML 1,000 ML IV PRN (22:31)
[2017-10-08] MEDS: POTASSI CL 20 MEQ/50 ML RIDER 20 MEQ/50 ML RTUPB IV SCH (22:31)
[2017-10-09] MEDS: POTASSI CL 20 MEQ/50 ML RIDER 20 MEQ/50 ML RTUPB IV SCH (00:25)
[2017-10-09] MEDS: LANSOPRAZOLE 30 MG TAB.RAP.DR PO SCH (06:22)
--- NOTE | 2017-10-09 07:32 | EKG REPORT ---
SEVERITY:- OTHERWISE NORMAL ECG - SINUS RHYTHM BORDERLINE LEFT AXIS DEVIATION : Confirmed by: Puma Mistry MD 09-Oct-2017 07:30:45
[2017-10-09 07:38] LABS: ANION GAP 10 (5-19); BLOOD UREA NITROGEN 30 mg/dL (7-20); CALCIUM 8.4 mg/dL (8.4-10.2); CARBON DIOXIDE 25 mmol/L (22-30); CHLORIDE 105 mmol/L (98-107); GLUCOSE 109 mg/dL (75-110); POTASSIUM 3.4 mmol/L (3.6-5.0)
[2017-10-09 07:59] LABS: APPEARANCE,URINE CLEAR; BILIRUBIN,URINE NEGATIVE (NEGATIVE); COLOR,URINE YELLOW; GLUCOSE, URINE NEGATIVE (NEGATIVE); KETONES,URINE NEGATIVE (NEGATIVE); LEUKOCYTE ESTERASE,URINE NEGATIVE (NEGATIVE); NITRITE,URINE NEGATIVE (NEGATIVE); PROTEIN,URINE NEGATIVE (NEGATIVE); URINE SPECIFIC GRAVITY 1.008; UROBILINOGEN,URINE NEGATIVE mg/dL (<2.0)
[2017-10-09] MEDS ORDERED: ENOXAPARIN SODIUM INJ 40 MG/0.4 ML DISP.SYRIN SUBCUT SCH (10:00)
[2017-10-09] MEDS: ENOXAPARIN SODIUM INJ 30 MG/0.3 ML DISP.SYRIN SUBCUT SCH (10:25)
[2017-10-09] MEDS ORDERED: ALBUTEROL SULFATE HFA (90 MCG/PUFF) 8 GM MDI (1 MDI/ER DISP) IH PRN (14:46)
--- NOTE | 2017-10-09 14:51 | PDOC PROGRESS REPORT ---
Subjective Progress Note for:: 10/09/17 Subjective:: Admitted overnight. Feeling better. No additional episodes of N/V. Wants to go home. Reason For Visit: DEHYDRATION,ACUTE KIDNEY INJURY Physical Exam Vital Signs: Temp Pulse Resp BP Pulse Ox 97.9 F 62 18 137/61 H 99 10/09/17 13:01 10/09/17 13:01 10/09/17 13:01 10/09/17 13:01 10/09/17 13:01 General appearance: PRESENT: no acute distress, cooperative, well-developed, well-nourished Head exam: PRESENT: normocephalic Mouth exam: PRESENT: dry mucosa Respiratory exam: PRESENT: unlabored Cardiovascular exam: PRESENT: +S1, +S2. ABSENT: tachycardia GI/Abdominal exam: PRESENT: normal bowel sounds, soft. ABSENT: tenderness Neurological exam: PRESENT: alert, awake, CN II-XII grossly intact Psychiatric exam: PRESENT: appropriate affect Skin exam: PRESENT: dry Results Laboratory Results: 10/09/17 06:55 10/09/17 10/09/17 06:55 07:29 Sodium 140.0 Potassium 3.4 L Chloride 105 Carbon Dioxide 25 Anion Gap 10 BUN 30 H Creatinine 1.83 H Est GFR ( Amer) 32 L Est GFR (Non-Af Amer) 27 L Glucose 109 Calcium 8.4 Urine Color YELLOW Urine Appearance CLEAR Urine pH 6.0 Ur Specific Mcconnell 1.008 Urine Protein NEGATIVE Urine Glucose (UA) NEGATIVE Urine Ketones NEGATIVE Urine Blood NEGATIVE Urine Nitrite NEGATIVE Ur Leukocyte Esterase NEGATIVE Urine WBC (Auto) 1 Assessment & Plan - Diagnosis (1) Acute kidney injury Is this a current diagnosis for this admission?: Yes Plan: Most likely pre-renal in etiology. Cr 2.85 at admission, repeat this AM was 1.83 - Continue IVF - Encouraged PO intake as well - Will monitor UOP, I&Os (2) CHF (congestive heart failure) Qualifiers: Heart failure chronicity: unspecified Is this a current diagnosis for this admission?: Yes Plan: No TTE on record at [place]. Patient is on Valsartan and diuretic at home. Does not appear to be beta-lui. Will speak to patient to get more information, re : last echo. - Holding Valsartan in setting of HARMEET. BPs are acceptable at this time. (3) Hypertension Qualifiers: Hypertension type: essential hypertension Qualified Code(s): I10 - Essential (primary) hypertension Is this a current diagnosis for this admission?: Yes Plan: Per above. Valsartan is on hold due to HARMEET. (4) Vomiting Qualifiers: Vomiting type: unspecified Vomiting Intractability: non-intractable Nausea presence: with nausea Qualified Code(s): R11.2 - Nausea with vomiting, unspecified Is this a current diagnosis for this admission?: Yes Plan: Improved, has Zofran ordered both PO and IV prn (5) Type 2 diabetes mellitus Qualifiers: Diabetes mellitus complication status: without complication Is this a current diagnosis for this admission?: Yes Plan: On Metformin at home, holding here - HgA1c very well controlled (A1c 6%) - Time Time Spent with patient: Less than 15 minutes Anticipated discharge: Home Within: within 24 hours - Pending improvement in HARMEET
[2017-10-09] MEDS: NORMAL SALINE 1000 ML 1,000 ML IV PRN (16:24)
[2017-10-10] MEDS: LANSOPRAZOLE 30 MG TAB.RAP.DR PO SCH ×2 (05:20→09:20)
[2017-10-10 07:22] LABS: ANION GAP 10 (5-19); BLOOD UREA NITROGEN 19 mg/dL (7-20); CALCIUM 8.4 mg/dL (8.4-10.2); CARBON DIOXIDE 25 mmol/L (22-30); CHLORIDE 110 mmol/L (98-107); GLUCOSE 105 mg/dL (75-110); POTASSIUM 3.2 mmol/L (3.6-5.0); SODIUM 145.2 mmol/L (137-145)
[2017-10-10] MEDS: CHLORTHALIDONE 25 MG TABLET PO SCH (09:19)
[2017-10-10] MEDS: ASPIRIN 81 MG TABLET, ENT COATED PO SCH (09:20)
[2017-10-10] MEDS: ENOXAPARIN SODIUM INJ 30 MG/0.3 ML DISP.SYRIN SUBCUT SCH (09:20)
[2017-10-10] MEDS ORDERED: NORMAL SALINE 1000 ML 1,000 ML IV PRN (10:31)
[2017-10-10] MEDS: POTASSI CL 20 MEQ/50 ML RIDER 20 MEQ/50 ML RTUPB IV SCH ×3 (12:04→14:16)
[2017-10-10 15:00] LABS: ANION GAP 14 (5-19); BLOOD UREA NITROGEN 19 mg/dL (7-20); CALCIUM 8.7 mg/dL (8.4-10.2); CARBON DIOXIDE 24 mmol/L (22-30); CHLORIDE 108 mmol/L (98-107); GLUCOSE 94 mg/dL (75-110); POTASSIUM 4.1 mmol/L (3.6-5.0); SODIUM 145.6 mmol/L (137-145)
[2017-10-11 06:19] LABS: ANION GAP 10 (5-19); BLOOD UREA NITROGEN 14 mg/dL (7-20); CALCIUM 8.5 mg/dL (8.4-10.2); CARBON DIOXIDE 27 mmol/L (22-30); CHLORIDE 110 mmol/L (98-107); GLUCOSE 90 mg/dL (75-110); POTASSIUM 3.6 mmol/L (3.6-5.0); SODIUM 146.7 mmol/L (137-145)
--- NOTE | 2017-10-11 08:44 | PDOC PROGRESS REPORT ---
Subjective Progress Note for:: 10/10/17 Subjective:: Patient feeling well, walked around with physical therapy, anxious to get home. No pain, no further diarrhea though stools are soft. No nausea or emesis and now eating and drinking fine. No fever or chills. No CP or shortness of breath. No abdominal pain. Reason For Visit: DEHYDRATION,ACUTE KIDNEY INJURY Physical Exam Vital Signs: Temp Pulse Resp BP Pulse Ox 97.9 F 55 L 16 140/49 H 100 10/10/17 15:38 10/10/17 15:38 10/10/17 15:38 10/10/17 15:38 10/10/17 15:38 Intake & Output 10/09/17 10/10/17 10/11/17 06:59 06:59 06:59 Intake Total 1652 2314 Balance 1652 2314 Weight 69.5 kg General appearance: PRESENT: cooperative. ABSENT: no acute distress Head exam: PRESENT: atraumatic, normocephalic Eye exam: PRESENT: other - no vision Ear exam: PRESENT: normal external ear exam Mouth exam: PRESENT: moist, tongue midline Respiratory exam: PRESENT: clear to auscultation malgorzata, unlabored. ABSENT: rales , rhonchi, wheezes Cardiovascular exam: PRESENT: RRR. ABSENT: systolic murmur Pulses: PRESENT: normal radial pulses GI/Abdominal exam: PRESENT: hyperactive bowel sounds, soft. ABSENT: distended, firm, guarding, tenderness Rectal exam: PRESENT: deferred Extremities exam: ABSENT: pedal edema Neurological exam: PRESENT: alert, awake, oriented to person, oriented to place , oriented to situation Psychiatric exam: PRESENT: appropriate affect. ABSENT: anxious Skin exam: PRESENT: dry, intact, warm Results Laboratory Results: 10/10/17 14:15 10/10/17 10/10/17 07:00 14:15 Sodium 145.2 H 145.6 H Potassium 3.2 L 4.1 Chloride 110 H 108 H Carbon Dioxide 25 24 Anion Gap 10 14 BUN 19 19 Creatinine 1.02 0.89 Est GFR ( Amer) > 60 > 60 Est GFR (Non-Af Amer) 52 L > 60 Glucose 105 94 Calcium 8.4 8.7 10/08/17 23:30 Stool - Stool - Final 10/08/17 23:30 Stool - Stool Stool Culture - Final NO SALMONELLA, SHIGELLA, CAMPYLOBACTER, OR E.COLI 0157 RECOVERED. NEGATIVE FOR SHIGA TOXINS 1&2. Assessment & Plan - Diagnosis (1) Diarrhea Qualifiers: Diarrhea type: unspecified type Qualified Code(s): R19.7 - Diarrhea, unspecified Is this a current diagnosis for this admission?: Yes Plan: PT had multiple bouts watery diarrhea alonf with N/V for about 3 days at home, and now it is resolved with fluids resusitation and time. Stool culture and CDiff negative. Likely a viral gastroenteritis. (2) Hypokalemia Is this a current diagnosis for this admission?: Yes Plan: Being repleted with IV K, though vein is burning and tender. Repeat K drawn before repleted completed and shows normal K but I was informed that specimen was hemolyzed. Won rechk in the am and DC if normal. (3) Acute kidney injury Is this a current diagnosis for this admission?: Yes Plan: due to viral gastroenteritis, improving with hydration, rechk in am and stop IV fluids if normal. (4) CHF (congestive heart failure) Qualifiers: Heart failure chronicity: unspecified Is this a current diagnosis for this admission?: Yes Plan: no signs acute decompensation with IV fluids, restart her cardiac meds as we are able. (5) Hypertension Qualifiers: Hypertension type: essential hypertension Qualified Code(s): I10 - Essential (primary) hypertension Is this a current diagnosis for this admission?: Yes Plan: BP increasing, will add valsartan and follow BP (6) Type 2 diabetes mellitus Qualifiers: Diabetes mellitus complication status: without complication Is this a current diagnosis for this admission?: Yes Plan: metformin on hold, has lispro ACHS sliding scale here. Morning blood glucose normal for past few days. - Time Time Spent with patient: 15-24 minutes Anticipated discharge: Home - Inpatient Certification Based on my medical assessment, after consideration of the patient's comorbidities, presenting symptoms, or acuity I expect that the services needed warrant INPATIENT care.: Yes I certify that my determination is in accordance with my understanding of Medicare's requirements for reasonable and necessary INPATIENT services [42 CFR 412.3e].: Yes Medical Necessity: Need Close Monitoring Due to Risk of Patient Decompensation, Risk of Complication if Not Cared For in Hospital
[2017-10-11] MEDS ORDERED: FUROSEMIDE 40 MG TABLET PO SCH (10:00)
[2017-10-11] MEDS ORDERED: VALSARTAN 160 MG TABLET PO SCH (10:00)
[2017-10-11] MEDS: ASPIRIN 81 MG TABLET, ENT COATED PO SCH (10:26)
[2017-10-11] MEDS: LANSOPRAZOLE 30 MG TAB.RAP.DR PO SCH (10:26)
[2017-10-11] MEDS: CHLORTHALIDONE 25 MG TABLET PO SCH (10:27)
[2017-10-11] MEDS: ENOXAPARIN SODIUM INJ 30 MG/0.3 ML DISP.SYRIN SUBCUT SCH (10:27)
[2017-10-11 12:02] VITALS: BP 142/50
--- NOTE | 2017-10-11 17:37 | PDOC DISCHARGE SUMMARY ---
General - Admit/Disc Date/PCP Admission Date/Primary Care Provider: 10/08/17 20:57 IRISH HAMILTON MD Discharge Date: 10/11/17 - Discharge Diagnosis (1) Diarrhea Is this a current diagnosis for this admission?: Yes Summary: Resolved. Probably secondary to viral gastroenteritis. C. difficile and stool cultures negative. Patient was fluid hydrated and now she is back to normal. (2) Hypokalemia Is this a current diagnosis for this admission?: Yes Summary: She has received potassium supplementation and on discharge her potassium has returned to normal. Etiology likely related to gastrointestinal acute illness. (3) Acute kidney injury Is this a current diagnosis for this admission?: Yes Summary: This appears to have been a prerenal picture and her renal function returned to normal with fluid hydration. She is not eating and drinking without difficulty and able to maintain hydration. (4) CHF (congestive heart failure) Is this a current diagnosis for this admission?: Yes Summary: Without exacerbation. She has been restarted on her home meds for discharge, 1 exception- have asked her to hold Lasix for 2 days and then to restart secondary to the hypokalemia which required repletion. She states that from time to time she does not take her Lasix so she does not think that will be a problem. (5) Hypertension Is this a current diagnosis for this admission?: Yes Summary: Baseline upon discharge, she is started on her home medications for discharge. (6) Type 2 diabetes mellitus Is this a current diagnosis for this admission?: Yes Summary: Restarted on home medications for discharge. This was not a problem during the admission. (7) Sinus bradycardia Is this a current diagnosis for this admission?: Yes Summary: Monitor at night patient was seen to have her heart rate dropped into the 40s and 50s. Her EKG from 2014 shows a sinus bradycardia with heart rate in the 40s he was asymptomatic with heart rate in the 40s. When she is awake and moving around she has an normal sinus rhythm. On EKG there is no evidence of heart block. - Additional Information Resuscitation Status: Full Code Discharge Diet: Cardiac, Other (Comments) Discharge Activity: Balance Activity w/Rest Home Medications: Albuterol Sulfate [Ventolin Hfa] 2 puff IH Q4HP PRN 10/09/17 Aspirin [Aspirin EC] 81 mg PO DAILY 10/09/17 Chlorthalidone 0.5 tab PO DAILY 10/09/17 Diltiazem HCl [Cardizem] 120 mg PO BID 10/09/17 Levalbuterol HCl [Xopenex Neb 1.25 mg/3 ml Ampul] 1.25 mg NEB [id number] PRN Metformin HCl [Metformin HCl ER] 500 mg PO WSUPPER 10/09/17 Omeprazole 40 mg PO DAILY 10/09/17 Valsartan 160 mg PO DAILY 10/09/17 History of Present Illness History of Present Illness: DEMETRIS MOSS is a 77 year old female patient with past medical history of hypertension, CHF, borderline diabetes mellitus and legally blind presented with 3 days history of diarrhea, nausea, vomiting and poor oral intake. She reports on Friday after she returned from [employer] [employer] started to have sudden onset chills, nausea vomiting of ingested material and frequent watery diarrhea. Patient denies eating out or any family member with similar illness. After she took Imodium the frequency of her diarrhea is decreasing. Her her blood work shows creatinine of 2.85 and she is admitted to the hospitalist service for evaluation and management. Hospital Course Hospital Course: Please see hospital course by problem list Physical Exam Vital Signs: Temp Pulse Resp BP Pulse Ox 99.0 F 57 L 16 142/50 H 100 10/11/17 12:51 10/11/17 12:51 10/11/17 12:51 10/11/17 12:51 10/11/17 12:51 Intake & Output 10/10/17 10/11/17 10/12/17 06:59 06:59 06:59 Intake Total 1652 3736 346 Balance 1652 3736 346 Weight 69.5 kg 69.5 kg General appearance: PRESENT: no acute distress, cooperative, well-developed, well-nourished Head exam: PRESENT: atraumatic, normocephalic Eye exam: PRESENT: other - Patient has total blindness. ABSENT: conjunctival injection, scleral icterus Ear exam: PRESENT: normal external ear exam Respiratory exam: PRESENT: clear to auscultation malgorzata, unlabored. ABSENT: rales , rhonchi, wheezes Cardiovascular exam: PRESENT: RRR. ABSENT: systolic murmur Pulses: PRESENT: normal radial pulses GI/Abdominal exam: PRESENT: normal bowel sounds, soft. ABSENT: distended, guarding, tenderness Musculoskeletal exam: PRESENT: ambulatory Neurological exam: PRESENT: alert, awake, oriented to person, oriented to place , oriented to situation Psychiatric exam: PRESENT: appropriate affect. ABSENT: anxious Skin exam: PRESENT: dry, intact, warm Results Laboratory Results: 10/11/17 05:46 10/11/17 05:46 Sodium 146.7 H Potassium 3.6 Chloride 110 H Carbon Dioxide 27 Anion Gap 10 BUN 14 Creatinine 0.78 Est GFR ( Amer) > 60 Est GFR (Non-Af Amer) > 60 Glucose 90 Calcium 8.5 Magnesium 1.9 10/08/17 23:30 Stool - Stool - Final 10/08/17 23:30 Stool - Stool Stool Culture - Final NO SALMONELLA, SHIGELLA, CAMPYLOBACTER, OR E.COLI 0157 RECOVERED. NEGATIVE FOR SHIGA TOXINS 1&2. Qualifiers - * PATIENT BEING DISCHARGED WITH ANY OF THE FOLLOWING DIAGNOSIS: No Plan Discharge Plan: Patient is being discharged to home in baseline condition. 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 She has friends that help take care of her. Time Spent: Less than 30 Minutes
== END 2017-10-11 14:14 | disposition home or self-care (01) | DRG 391 ==
LOC: ER 17:35 → EH 20:57 → 4W 10-09 12:49 → 4S 10-09 14:45
PROVIDERS: ADMIT Internal Medicine; ATTEND Internal Medicine
DX: A08.4 Viral intestinal infection, unspecified (principal); N18.6 End stage renal disease; N17.9 Acute kidney failure, unspecified; I13.2 Hypertensive heart and chronic kidney disease with heart failure and with stage 5 chronic kidney disease, or end stage renal disease; I50.9 Heart failure, unspecified; E11.22 Type 2 diabetes mellitus with diabetic chronic kidney disease; E86.0 Dehydration; E87.6 Hypokalemia; R11.2 Nausea with vomiting, unspecified; H54.8 Legal blindness, as defined in USA; R53.1 Weakness; I25.2 Old myocardial infarction; Z79.84 Long term (current) use of oral hypoglycemic drugs; Z79.82 Long term (current) use of aspirin; Z79.899 Other long term (current) drug therapy
CPT/HCPCS: 36415; 80048; 80053; 81001; 83036; 83690; 83735; 85025; 87045; 87205; 87493; 93005; 93010; 96361; 96365; 96366; 99285; J1650; J3480; J3490; J7030; S0119

== ENCOUNTER 2017-11-13 12:29 | Emergency (ER) | payer BC, MEDICARE ==
[2017-11-13] MEDS ORDERED: NORMAL SALINE 1000 ML 500 ML IV ONE (13:03)
[2017-11-13] MEDS ORDERED: ONDANSETRON 4 MG TAB.RAPDIS PO ONE (13:04)
--- NOTE | 2017-11-13 13:05 | ER Document Report ---
ED Medical Screen (RME) - General Chief Complaint: Nausea/Vomiting/Diarrhea Stated Complaint: DIARRHEA,NAUSEA Time Seen by Provider: 11/13/17 12:53 Notes: RAPID MEDICAL EVALUATION DISCLOSURE I have seen this patient as part of a Rapid Medical Evaluation and, if applicable, placed any initially appropriate orders. The patient will be seen and fully evaluated, including a full history and physical exam, by a provider ( in Main ED or Fast Track) when a room becomes available. 77-year-old female here with complaints of lower abdominal pain nausea diarrhea and abdominal pain ongoing for the past few days. She has been unable to stay hydrated due to the nausea. She has tried Lomotil for the symptoms without much relief. She was sent here by her doctor. Per chart review, she had a similar presentation one month ago and was admitted for acute renal failure. EXAM Mild diffuse abdominal TTP TRAVEL OUTSIDE OF THE [place] IN LAST 30 DAYS: No - Related Data Allergies/Adverse Reactions: codeine [Codeine] Allergy (Intermediate, Verified 11/13/17 12:31) Hives erythromycin base [Erythromycin Base] Allergy (Intermediate, Verified 11/13/17 12:31) "crazy",crying Uirypae-Vul-Hom Reductase Inhibitor Adverse Reaction (Intermediate, Verified 12:31) Past Medical History - Social History Chew tobacco use (# tins/day): No Frequency of alcohol use: None Drug Abuse: None - Past Medical History Cardiac Medical History: Reports: Hx Heart Attack - DC age undetermined, Hx Hypertension Denies: Hx Coronary Artery Disease Pulmonary Medical History: Reports: Hx Asthma - uses O2 prn, Hx Bronchitis - prior to xolair tx, Hx Pneumonia Denies: Hx COPD Neurological Medical History: Denies: Hx Cerebrovascular Accident, Hx Seizures Renal/ Medical History: Reports: Hx End Stage Renal Disease. Denies: Hx Peritoneal Dialysis Musculoskeltal Medical History: Reports Hx Arthritis - DDD low back Psychiatric Medical History: Denies: Hx Depression Past Surgical History: Reports: Hx Cholecystectomy, Other - hernia repair - Immunizations Hx Diphtheria, Pertussis, Tetanus Vaccination: Yes History of Influenza Vaccine for 01/2017 - 06/2017 Season: Yes Influenza Administration Date for 01/2017 - 06/2017 Season: 01/26/17 Physical Exam - Vital signs Vitals: Temp Pulse Resp BP Pulse Ox 98.8 F 69 18 146/53 H 96 11/13/17 12:33 11/13/17 12:33 11/13/17 12:33 11/13/17 12:33 11/13/17 12:33 Course - Vital Signs Vital signs: Temp Pulse Resp BP Pulse Ox 98.8 F 69 18 146/53 H 96 11/13/17 12:33 11/13/17 12:33 11/13/17 12:33 11/13/17 12:33 11/13/17 12:33 Doctor's Discharge - Discharge Referrals: DONA REMY MD [Primary Care Provider] - Follow up as needed
[2017-11-13 14:23] LABS: ABSOLUTE LYMPHOCYTES (AUTO) 1.2 10^3/uL (0.5-4.7); ABSOLUTE NEUT (AUTO) 11.8 10^3/uL (1.7-8.2); BASOPHILS % (AUTO) 0.3 % (0-2); EOSINOPHILS % (AUTO) 0.2 % (0-6); HEMOGLOBIN 12.9 g/dL (12.0-15.5); LYMPHOCYTES % (AUTO) 8.5 % (13-45); MEAN CORPUSCULAR HEMOGLOBIN 31.2 pg (27.0-33.4); MEAN CORPUSCULAR HGB CONC 34.9 g/dL (32.0-36.0); MEAN CORPUSCULAR VOLUME 90 fl (80-97); MONOCYTES % (AUTO) 6.8 % (3-13); PLATELET COUNT 268 10^3/uL (150-450); RED BLOOD COUNT 4.13 10^6/uL (3.72-5.28); RED CELL DISTRIBUTION WIDTH 14.7 % (11.5-14.0); SEGMENTED NEUTROPHILS % (AUTO) 84.2 % (42-78); TOTAL CELLS COUNTED % (AUTO) 100 %
--- NOTE | 2017-11-13 14:29 | ER Document Report ---
ED General - General Chief Complaint: Nausea/Vomiting/Diarrhea Stated Complaint: DIARRHEA,NAUSEA Time Seen by Provider: 11/13/17 12:53 Information source: Patient TRAVEL OUTSIDE OF THE [place] IN LAST 30 DAYS: No - HPI Patient complains to provider of: abd pain, diarrhea, nausea Onset/Duration: Gradual, Intermittent Quality of pain: Cramping Severity: Moderate Associated symptoms: Diarrhea, Nausea. denies: Fever, Vomiting Notes: 77-year-old female history of diabetes and legally blind presents with few days of nausea, abdominal cramping, and diarrhea. She reports about 20 episodes of diarrhea today. She was admitted to the hospital last month for the same and had acute renal failure. Stool cultures and C. difficile were negative. Denies recent antibiotics or other hospital admissions. No recent surgery. No prior history of C. difficile. She was advised by primary care physician to come back to the emergency department for evaluation. Denies out of country travel or ill contacts. Unable to eat due to nausea. - Related Data Allergies/Adverse Reactions: codeine [Codeine] Allergy (Intermediate, Verified 11/13/17 12:31) Hives erythromycin base [Erythromycin Base] Allergy (Intermediate, Verified 11/13/17 12:31) "crazy",crying Uqxmuig-Zjn-Sal Reductase Inhibitor Adverse Reaction (Intermediate, Verified 12:31) Past Medical History - Social History Smoking Status: Never Smoker Chew tobacco use (# tins/day): No Frequency of alcohol use: None Drug Abuse: None Family History: Reviewed & Not Pertinent Patient has suicidal ideation: No Patient has homicidal ideation: No - Past Medical History Cardiac Medical History: Reports: Hx Heart Attack - [place] age undetermined, Hx Hypertension Denies: Hx Coronary Artery Disease Pulmonary Medical History: Reports: Hx Asthma - uses O2 prn, Hx Bronchitis - prior to xolair tx, Hx Pneumonia Denies: Hx COPD Neurological Medical History: Denies: Hx Cerebrovascular Accident, Hx Seizures Endocrine Medical History: Reports: Hx Diabetes Mellitus Type 2 Renal/ Medical History: Reports: Other - acute kidney injury. Denies: Hx Peritoneal Dialysis Musculoskeletal Medical History: Reports Hx Arthritis - DDD low back Psychiatric Medical History: Denies: Hx Depression Past Surgical History: Reports: Hx Cholecystectomy, Other - hernia repair - Immunizations Hx Diphtheria, Pertussis, Tetanus Vaccination: Yes Hx Pneumococcal Vaccination: 04/28/04 Review of Systems - Review of Systems Notes: REVIEW OF SYSTEMS: CONSTITUTIONAL: -fevers, -chills, +fatigue EENT: -eye pain, -difficulty swallowing, -nasal congestion, legally blind CARDIOVASCULAR: -chest pain, -syncope. RESPIRATORY: -cough, -SOB GASTROINTESTINAL: +abdominal pain, +nausea, -vomiting, +diarrhea GENITOURINARY: -dysuria, -hematuria MUSCULOSKELETAL: -back pain, -neck pain SKIN: -rash or skin lesions. HEMATOLOGIC: -easy bruising or bleeding. LYMPHATIC: -swollen, enlarged glands. NEUROLOGICAL: -altered mental status or loss of consciousness, -headache, - neurologic symptoms PSYCHIATRIC: -anxiety, -depression. Physical Exam - Vital signs Vitals: Temp Pulse Resp BP Pulse Ox 98.8 F 69 18 146/53 H 96 11/13/17 12:33 11/13/17 12:33 11/13/17 12:33 11/13/17 12:33 11/13/17 12:33 - Notes Notes: PHYSICAL EXAMINATION: GENERAL: Well-appearing, well-nourished and in no acute distress. HEAD: Atraumatic, normocephalic. EYES: Pupils equal round and reactive to light, extraocular movements intact, conjunctiva are normal, legally blind, lateral nystagmus present. ENT: nares patent, oropharynx clear without exudates. Moist mucous membranes. NECK: Normal range of motion, supple without lymphadenopathy LUNGS: Breath sounds clear to auscultation bilaterally and equal. No wheezes rales or rhonchi. HEART: Regular rate and rhythm, no chest wall tenderness ABDOMEN: Soft, mild epigastric tenderness, normoactive bowel sounds. No guarding, no rebound. No masses appreciated. EXTREMITIES: Normal range of motion, no pitting or edema. No cyanosis. NEUROLOGICAL: Cranial nerves grossly intact. Normal speech, normal gait. Normal sensory and motor exams. PSYCH: Normal mood, normal affect. SKIN: Warm, Dry, normal turgor, no rashes or lesions noted. Course - Re-evaluation Re-evalutation: 11/13/17 14:34 Well-appearing. Given Zofran. Will hydrate. Labs ordered. 11/13/17 17:49 Patient given fluids and feeling better. CT shows large stool ball consistent with impaction. Likely having overflow diarrhea. We will try enema. Discussed finding of 8 mm lung nodule and need for follow-up. Hepatitis panel sent for elevated LFTs that were not present previously. 11/13/17 18:50 Patient had success with enema. Understands importance of primary care follow- up. - Vital Signs Vital signs: Temp Pulse Resp BP Pulse Ox 98.8 F 69 18 146/53 H 96 11/13/17 12:33 11/13/17 12:33 11/13/17 12:33 11/13/17 12:33 11/13/17 12:33 - Laboratory Result Diagrams: 11/13/17 13:54 11/13/17 13:54 Laboratory results interpreted by me: 11/13/17 11/13/17 13:54 13:54 WBC 14.0 H RDW 14.7 H Seg Neutrophils % 84.2 H Lymphocytes % 8.5 L Absolute Neutrophils 11.8 H Chloride 97 L Est GFR (Non-Af Amer) 50 L Total Bilirubin 2.3 H AST 302 H ALT 335 H Alkaline Phosphatase 183 H Discharge - Discharge Clinical Impression: Fecal impaction, Overflow diarrhea Condition: Good Disposition: HOME, SELF-CARE Instructions: Fecal Impaction ([facility]) Additional Instructions: Drink plenty of fluids. Follow-up with your doctor for further evaluation and treatment. Return for any worsening or concerning symptoms. Increase fiber in diet. Referrals: DONA REMY MD [EMERITUS] - Follow up as needed
[2017-11-13 14:42] LABS: ALANINE AMINOTRANSFERASE 335 U/L (9-52); ALBUMIN 4.5 g/dL (3.5-5.0); ALKALINE PHOSPHATASE 183 U/L (38-126); ANION GAP 13 (5-19); ASPARTATE AMINO TRANSFERASE 302 U/L (14-36); BILIRUBIN,DIRECT 0.4 mg/dL (0.0-0.4); BILIRUBIN,TOTAL 2.3 mg/dL (0.2-1.3); BLOOD UREA NITROGEN 20 mg/dL (7-20); CALCIUM 9.2 mg/dL (8.4-10.2); CARBON DIOXIDE 30 mmol/L (22-30); CHLORIDE 97 mmol/L (98-107); GLUCOSE 108 mg/dL (75-110); LIPASE 116.3 U/L (23-300); POTASSIUM 3.8 mmol/L (3.6-5.0); SODIUM 140.4 mmol/L (137-145)
--- NOTE | 2017-11-13 16:52 | RADIOLOGY REPORT (SQ) ---
EXAM DESCRIPTION: CT ABD/PELVIS WITH IV ONLY COMPLETED DATE/TIME: 11/13/2017 4:21 pm REASON FOR STUDY: n/v, abd pain COMPARISON: None. TECHNIQUE: CT scan of the abdomen and pelvis performed using helical scanning technique with dynamic intravenous contrast injection. No oral contrast. Images reviewed with lung, soft tissue, and bone windows. Reconstructed coronal and sagittal MPR images reviewed. Delayed images for evaluation of the urinary system also acquired. All images stored on PACS. All CT scanners at this facility use dose modulation, iterative reconstruction, and/or weight based d osing when appropriate to reduce radiation dose to as low as reasonably achievable (ALARA). [facility]: Dose Right [facility]: CareDose [facility]: Dose Right [facility]: Teradose 4D [facility]: MadeiraMadeira CONTRAST TYPE AND DOSE: contrast/concentration: Isovue 370.00 mg/ml; Total Contrast Delivered: 99.0 ml; Total Saline Delivered: 45.0 ml 99 mL Isovue 370- low osmolar. RENAL FUNCTION: Creatinine 1.06 RADIATION DOSE: CT Rad equipment meets quality standard of care and radiation dose reduction techniq ues were employed. CTDIvol: 7.9 - 11.2 mGy. DLP: 933 mGy-cm.. LIMITATIONS: None. FINDINGS: LOWER CHEST: 8 mm non solid nodule posteriorly left lower lung zone. Few foci of scarring . LIVER: Normal size. No masses. No dilated ducts. SPLEEN: Normal size. No focal lesions. PANCREAS: No masses. No significant calcifications. No adjacent inflammation or peripancreatic fluid collections. Pancreatic duct not dilated. GALLBLADDER: Status post cholecystectomy. Common bile duct 13 mm. No obstructing pathology identifi ed distally. ADRENAL GLANDS: No significant masses or asymmetry. RIGHT KIDNEY AND URETER: No solid masses. No significant calcifications. No hydronephrosis or hyd roureter. LEFT KIDNEY AND URETER: No solid masses. No significant calcifications. No hydronephrosis or hydr oureter. AORTA AND VESSELS: No aneurysm. No dissection. Renal arteries, SMA, celiac without stenosis. RETROPERITONEUM: No retroperitoneal adenopathy, hemorrhage or masses. BOWEL AND PERITONEAL CAVITY: No masses or inflammatory changes. No free fluid or peritoneal masses. Large quantity fecal 2 rectosigmoid consistent with impaction. APPENDIX: Not visualized. PELVIS: No mass. No free fluid. Normal bladder. ABDOMINAL WALL: No masses. No hernias. BONES: Moderate to severe disc degeneration L5-S1. OTHER: No other significant finding. IMPRESSION: No acute or significant findings to explain the patient's clinical information. Inciden joseph findings include 8 mm non solid nodule left lower lung zone. Recommend followup according to Fle ischner criteria. Status post cholecystectomy. Dilated common bile duct post cholecystectomy with n o obstructing pathology identified distally. Large quantity of fecal material rectosigmoid consisten t with impaction. COMMENT: Fleischner Criteria for Ground Glass Nodules: >6-8mm part solid single nodule: CT 3-6 mo to confirm persistence, if unchanged solid component remai ns < 6mm annual CT should be performed for 5 yrs. TECHNICAL DOCUMENTATION: JOB ID: [id number] Quality ID # [id number]: Final reports with documentation of one or more dose reduction techniques (e.g., Au tomated exposure control, adjustment of the mA and/or kV according to patient size, use of iterative reconstruction technique) 2010 [employer]- All Rights Reserved Reading location - IP/workstation name: [email or web address]
[2017-11-13 19:13] VITALS: BP 104/51
== END 2017-11-13 19:18 | disposition home or self-care (01) ==
LOC: ER 12:29
DX: K56.41 Fecal impaction (principal); R19.7 Diarrhea, unspecified; R79.89 Other specified abnormal findings of blood chemistry; R91.1 Solitary pulmonary nodule; R11.0 Nausea; R10.9 Unspecified abdominal pain; R10.816 Epigastric abdominal tenderness; E11.9 Type 2 diabetes mellitus without complications; I10 Essential (primary) hypertension; Z90.49 Acquired absence of other specified parts of digestive tract; Z88.5 Allergy status to narcotic agent; Z88.1 Allergy status to other antibiotic agents
CPT/HCPCS: 99284; 96360; 36415; 87045; 87205; 83690; 85025; 87077; 80053; 87493; 74177; A9270; J7030; S0119

== ENCOUNTER → 2017-11-17 | Outpatient (CLI) | payer MEDICARE ==
[2017-11-17 13:41] LABS: ANION GAP 11 (5-19); BLOOD UREA NITROGEN 10 mg/dL (7-20); CARBON DIOXIDE 32 mmol/L (22-30); CHLORIDE 99 mmol/L (98-107); CHOLESTEROL 166.27 mg/dL (0-200); GLUCOSE 93 mg/dL (75-110); POTASSIUM 3.5 mmol/L (3.6-5.0); SODIUM 142.3 mmol/L (137-145); TRIGLYCERIDES 78 mg/dL (<150)
[2017-11-17 13:52] LABS: DIRECT LDL 100 mg/dL (<100)
== END ==
LOC: OD 11:19
PROVIDERS: ATTEND Internal Medicine Cardiovascular Disease
DX: E78.2 Mixed hyperlipidemia (principal); I10 Essential (primary) hypertension; Z79.899 Other long term (current) drug therapy
CPT/HCPCS: 36415; 80048; 80061; 83735

== ENCOUNTER → 2017-11-21 | Outpatient (CLI) | payer MEDICARE ==
[2017-11-21 09:12] LABS: ANION GAP 12 (5-19); BLOOD UREA NITROGEN 9 mg/dL (7-20); CALCIUM 8.9 mg/dL (8.4-10.2); CARBON DIOXIDE 27 mmol/L (22-30); CHLORIDE 107 mmol/L (98-107); GLUCOSE 92 mg/dL (75-110); SODIUM 146.3 mmol/L (137-145)
== END ==
LOC: LAB 08:26
PROVIDERS: ATTEND Internal Medicine Cardiovascular Disease
DX: E87.6 Hypokalemia (principal)
CPT/HCPCS: 36415; 80048

== ENCOUNTER → 2018-02-24 | Outpatient (CLI) | payer MEDICARE, BC ==
[2018-02-24 11:06] LABS: ANION GAP 12 (5-19); BLOOD UREA NITROGEN 15 mg/dL (7-20); CALCIUM 9.2 mg/dL (8.4-10.2); CARBON DIOXIDE 29 mmol/L (22-30); CHLORIDE 102 mmol/L (98-107); GLUCOSE 87 mg/dL (75-110); PHOSPHORUS 4.6 mg/dL (2.5-4.5); POTASSIUM 4.2 mmol/L (3.6-5.0); SODIUM 143.2 mmol/L (137-145)
== END ==
LOC: OD 09:39
PROVIDERS: ATTEND Internal Medicine Cardiovascular Disease
DX: I10 Essential (primary) hypertension (principal); E87.6 Hypokalemia
CPT/HCPCS: 36415; 80048; 80069

== ENCOUNTER 2018-05-17 09:27 | Emergency (ER) | payer MEDICARE, BC ==
--- NOTE | 2018-05-17 10:20 | ER Document Report ---
ED General - General Chief Complaint: Breathing Difficulty Stated Complaint: VOMITING Time Seen by Provider: 05/17/18 10:03 Mode of Arrival: Medic Information source: Patient Notes: 77-year-old female who is legally blind presents the emergency department with complaints of nausea, vomiting, chills, wheezing, cough for the last 3 days. Patient states that last night she did have an episode of chest pain. She describes it as a dull pressure sensation across the chest. No radiation of the pain. No alleviating or exacerbating factors. Patient states that the pain resolved on its own. Patient states that she does have a history of asthma and has been wheezing more frequently. She does have a Ventolin inhaler at home. She does have home oxygen that she wears when she needs it. Patient denies any fever, diarrhea, constipation, dysuria, hematuria, increased urgency, increased frequency. Patient received an albuterol and Atrovent, 125 mg of Solu-Medrol, Zofran while in route by EMS. Patient states that she is feeling much better. Her wheezing has resolved as well as her nausea. TRAVEL OUTSIDE OF THE [place] IN LAST 30 DAYS: No - HPI Onset: Other - 3 days Onset/Duration: Persistent Quality of pain: No pain Severity: Mild Pain Level: Denies Associated symptoms: Chest pain, Chills, Nonproductive cough, Nausea, Vomiting, Rhinnorhea Exacerbated by: Denies Relieved by: Denies Similar symptoms previously: No Recently seen / treated by doctor: No - Related Data Allergies/Adverse Reactions: codeine [Codeine] Allergy (Intermediate, Verified 05/17/18 09:44) Hives erythromycin base [Erythromycin Base] Allergy (Intermediate, Verified 05/17/18 09:44) "crazy",crying Xfyscph-Yoh-Fnh Reductase Inhibitor Adverse Reaction (Intermediate, Verified 09:44) Past Medical History - General Information source: Patient - Social History Smoking Status: Never Smoker Chew tobacco use (# tins/day): No Frequency of alcohol use: None Drug Abuse: None Family History: Reviewed & Not Pertinent Patient has suicidal ideation: No Patient has homicidal ideation: No - Past Medical History Cardiac Medical History: Reports: Hx Heart Attack - [place] age undetermined, Hx Hypertension Denies: Hx Coronary Artery Disease Pulmonary Medical History: Reports: Hx Asthma - uses O2 prn, Hx Bronchitis - prior to xolair tx, Hx Pneumonia Denies: Hx COPD Neurological Medical History: Denies: Hx Cerebrovascular Accident, Hx Seizures Endocrine Medical History: Reports: Hx Diabetes Mellitus Type 2 Renal/ Medical History: Reports: Hx End Stage Renal Disease. Denies: Hx Peritoneal Dialysis Musculoskeletal Medical History: Reports Hx Arthritis - DDD low back Psychiatric Medical History: Denies: Hx Depression Past Surgical History: Reports: Hx Cholecystectomy, Other - hernia repair - Immunizations Hx Diphtheria, Pertussis, Tetanus Vaccination: Yes Hx Pneumococcal Vaccination: 04/28/04 Review of Systems - Review of Systems Constitutional: No symptoms reported EENT: Nose discharge Cardiovascular: Chest pain Respiratory: Cough, Short of breath, Wheezing Gastrointestinal: Nausea, Vomiting Genitourinary: No symptoms reported Female Genitourinary: No symptoms reported Musculoskeletal: No symptoms reported Skin: No symptoms reported Hematologic/Lymphatic: No symptoms reported Neurological/Psychological: No symptoms reported -: Yes All other systems reviewed and negative Physical Exam - Notes Notes: PHYSICAL EXAMINATION: GENERAL: Well-appearing, well-nourished and in no acute distress. HEAD: Atraumatic, normocephalic. EYES: Pupils equal round and reactive to light, extraocular movements intact, conjunctiva are normal. ENT: Nares patent, oropharynx clear without exudates. Moist mucous membranes. NECK: Normal range of motion, supple without lymphadenopathy LUNGS: Breath sounds clear to auscultation bilaterally and equal. No wheezes rales or rhonchi. HEART: Regular rate and rhythm without murmurs ABDOMEN: Soft, nontender, nondistended abdomen. No guarding, no rebound. No masses appreciated. Female : deferred Musculoskeletal: Normal range of motion, no pitting or edema. No cyanosis. NEUROLOGICAL: Cranial nerves grossly intact. Normal speech, normal gait. Normal sensory, motor exams PSYCH: Normal mood, normal affect. SKIN: Warm, Dry, normal turgor, no rashes or lesions noted. Course - Re-evaluation Re-evalutation: 05/17/18 10:45 EKG: Ventricular rate 84, NV interval 188, castration 80, QTc 431, sinus rhythm. Left axis deviation. No ST segment elevation. 05/17/18 13:21 On reevaluation, patient is now stating that she is having some pain in the epigastric area. Patient states that it feels like hunger pains. Patient denies any chest pain or shortness of breath. Physical exam is unremarkable. No tenderness to palpation in the epigastric area or anywhere else in the abdomen. Labs obtained. Liver enzymes are elevated. Patient says that she has had a cholecystectomy 2 years ago. 05/17/18 13:43 Repeat EKG obtained. Ventricular rate 115, castration 74, QTc 460, atrial fibrillation. Patient is on Cardizem. I asked the patient she has a history of atrial fibrillation. She states that she does have a history of an abnormal rhythm. 05/17/18 14:55 Patient offered GI cocktail for the epigastric pain. Declines GI cocktail. Requesting pepcid. Repeat troponin is negative. Patient is feeling better. I will discharge the patient home. Patient instructed to take medication as directed, to follow up with PCP this week, and to return for worsening symptoms. 05/17/18 14:57 - Laboratory Result Diagrams: 05/17/18 09:35 05/17/18 09:35 Laboratory results interpreted by me: 05/17/18 05/17/18 05/17/18 09:35 09:35 11:24 Hct 35.2 L Seg Neuts % (Manual) 94 H Lymphocytes % (Manual) 5 L Monocytes % (Manual) 1 L Abs Neuts (Manual) 8.5 H Glucose 130 H Direct Bilirubin 0.8 H AST 623 H ALT 426 H Alkaline Phosphatase 144 H Urine Urobilinogen 4.0 H Discharge - Discharge Clinical Impression: Viral illness Condition: Stable Disposition: HOME, SELF-CARE Instructions: Viral Syndrome ([facility]) Prescriptions: Ondansetron [Zofran Odt 4 mg Tablet] 1 tab PO Q4H PRN #15 tab.rapdis PRN Reason: For Nausea/Vomiting Referrals: DONA REMY MD [EMERITUS] - Follow up as needed
[2018-05-17 10:32] LABS: ALANINE AMINOTRANSFERASE 426 U/L (9-52); ALKALINE PHOSPHATASE 144 U/L (38-126); ANION GAP 9 (5-19); ASPARTATE AMINO TRANSFERASE 623 U/L (14-36); BILIRUBIN,DIRECT 0.8 mg/dL (0.0-0.4); BILIRUBIN,TOTAL 1.3 mg/dL (0.2-1.3); BLOOD UREA NITROGEN 18 mg/dL (7-20); CALCIUM 9.1 mg/dL (8.4-10.2); CARBON DIOXIDE 28 mmol/L (22-30); CHLORIDE 102 mmol/L (98-107); GLUCOSE 130 mg/dL (75-110); LIPASE 121.7 U/L (23-300); POTASSIUM 3.9 mmol/L (3.6-5.0); SODIUM 138.7 mmol/L (137-145); TOTAL PROTEIN 6.3 g/dL (6.3-8.2)
[2018-05-17] MEDS ORDERED: NORMAL SALINE 500 ML IV ONE ×2 (10:32→12:17)
[2018-05-17 10:33] LABS: HEMATOCRIT 35.2 % (36.0-47.0); HEMOGLOBIN 12.2 g/dL (12.0-15.5); MEAN CORPUSCULAR HEMOGLOBIN 31.1 pg (27.0-33.4); MEAN CORPUSCULAR HGB CONC 34.6 g/dL (32.0-36.0); MEAN CORPUSCULAR VOLUME 90 fl (80-97); PLATELET COUNT 236 10^3/uL (150-450); RED BLOOD COUNT 3.91 10^6/uL (3.72-5.28); RED CELL DISTRIBUTION WIDTH 13.8 % (11.5-14.0)
[2018-05-17 11:00] LABS: ABSOLUTE LYMPHOCYTES# (MANUAL) 0.5 10^3/uL (0.5-4.7); ABSOLUTE MONOCYTES # (MANUAL) 0.1 10^3/uL (0.1-1.4); ABSOLUTE NEUTROPHILS# (MANUAL) 8.5 10^3/uL (1.7-8.2); BASOPHILS % (MANUAL) 0 % (0-2); EOSINOPHILS % (MANUAL) 0 % (0-6); LYMPHOCYTES % (MANUAL) 5 % (13-45); MONOCYTES % (MANUAL) 1 % (3-13); PLATELET CLUMPS PRESENT; PLATELET COMMENT ADEQUATE; SEGMENTED NEUTROPHILS % (MAN) 94 % (42-78); TOTAL CELLS COUNTED 100
[2018-05-17 11:25] LABS: A TYPE INFLUENZA AG NEGATIVE (NEGATIVE); B INFLUENZA AG NEGATIVE (NEGATIVE)
--- NOTE | 2018-05-17 11:26 | RADIOLOGY REPORT (SQ) ---
EXAM DESCRIPTION: CHEST SINGLE VIEW COMPLETED DATE/TIME: 05/17/2018 11:03 am REASON FOR STUDY: cough COMPARISON: 12/12/2014. EXAM PARAMETERS: NUMBER OF VIEWS: One view. TECHNIQUE: Single frontal radiographic view of the chest acquired. RADIATION DOSE: NA LIMITATIONS: None. FINDINGS: LUNGS AND PLEURA: No opacities, masses or pneumothorax. No pleural effusion. MEDIASTINUM AND HILAR STRUCTURES: No masses. Contour normal. HEART AND VASCULAR STRUCTURES: Heart normal in size. Normal vasculature. BONES: No acute findings. HARDWARE: None in the chest. OTHER: No other significant finding. IMPRESSION: NO ACUTE RADIOGRAPHIC FINDING IN THE CHEST. TECHNICAL DOCUMENTATION: JOB ID: [id number] [employer]- All Rights Reserved Reading location - IP/workstation name: [email or web address]
[2018-05-17 11:58] LABS: APPEARANCE,URINE CLEAR; BILIRUBIN,URINE NEGATIVE (NEGATIVE); GLUCOSE, URINE NEGATIVE (NEGATIVE); KETONES,URINE NEGATIVE (NEGATIVE); LEUKOCYTE ESTERASE,URINE NEGATIVE (NEGATIVE); NITRITE,URINE NEGATIVE (NEGATIVE); PROTEIN,URINE NEGATIVE (NEGATIVE); URINE SPECIFIC GRAVITY 1.015
[2018-05-17 11:59] LABS: COLOR,URINE YELLOW
[2018-05-17] MEDS ORDERED: METOCLOPRAMIDE HCL ORAL SOLN 10 MG/10 ML UDCUP PO ONE (13:20)
[2018-05-17] MEDS ORDERED: LIDOCAINE 2% VISCOUS SOLN 20 ML UDCUP PO ONE (13:20)
[2018-05-17] MEDS ORDERED: MAG HYDROX/AL HYDROX/SIMETH SUSP 30 ML UDCUP PO ONE (13:20)
[2018-05-17] MEDS ORDERED: ACETAMINOPHEN 325 MG TABLET PO ONE (13:42)
[2018-05-17] MEDS ORDERED: FAMOTIDINE 20 MG TABLET PO ONE (14:17)
[2018-05-17 15:34] VITALS: BP 105/65
--- NOTE | 2018-05-17 23:50 | EKG REPORT ---
SEVERITY:- ABNORMAL ECG - ATRIAL FIBRILLATION BORDERLINE LEFT AXIS DEVIATION PROBABLE ANTEROSEPTAL INFARCT, AGE INDETERM : Confirmed by: Jonh May 17-May-2018 23:48:28
--- NOTE | 2018-05-18 18:36 | EKG REPORT ---
SEVERITY:- BORDERLINE ECG - SINUS RHYTHM SUPRAVENTRICULAR BIGEMINY BORDERLINE LEFT AXIS DEVIATION : Confirmed by: Felicita Carvalho MD 18-May-2018 18:36:11
== END 2018-05-17 15:34 | disposition home or self-care (01) ==
LOC: ER 09:27
DX: B34.9 Viral infection, unspecified (principal); J45.909 Unspecified asthma, uncomplicated; R11.2 Nausea with vomiting, unspecified; R68.83 Chills (without fever); R05 Cough; R10.13 Epigastric pain; R07.89 Other chest pain; H54.8 Legal blindness, as defined in USA; R74.8 Abnormal levels of other serum enzymes; J34.89 Other specified disorders of nose and nasal sinuses; I10 Essential (primary) hypertension; I48.91 Unspecified atrial fibrillation; I25.2 Old myocardial infarction; E11.9 Type 2 diabetes mellitus without complications; Z79.899 Other long term (current) drug therapy; Z88.5 Allergy status to narcotic agent; Z88.1 Allergy status to other antibiotic agents; Z87.01 Personal history of pneumonia (recurrent); Z90.49 Acquired absence of other specified parts of digestive tract
CPT/HCPCS: 93005; 99284; 96360; 96361; 36415; 83690; 85025; 80053; 81001; 84484; 87804; 71045; 93010; A9270 ×2; J7040

== ENCOUNTER → 2018-06-04 | Outpatient (CLI) | payer MEDICARE, BC ==
[2018-06-04 11:23] LABS: ALANINE AMINOTRANSFERASE 13 U/L (9-52); ALBUMIN 4.2 g/dL (3.5-5.0); ALKALINE PHOSPHATASE 79 U/L (38-126); ANION GAP 10 (5-19); ASPARTATE AMINO TRANSFERASE 15 U/L (14-36); BILIRUBIN,DIRECT 0.2 mg/dL (0.0-0.4); BILIRUBIN,TOTAL 0.5 mg/dL (0.2-1.3); BLOOD UREA NITROGEN 14 mg/dL (7-20); CALCIUM 9.4 mg/dL (8.4-10.2); CARBON DIOXIDE 29 mmol/L (22-30); CHLORIDE 104 mmol/L (98-107); GLUCOSE 94 mg/dL (75-110); POTASSIUM 4.8 mmol/L (3.6-5.0); SODIUM 143.1 mmol/L (137-145); TOTAL PROTEIN 6.7 g/dL (6.3-8.2); TRIGLYCERIDES 130 mg/dL (<150)
[2018-06-04 11:34] LABS: DIRECT LDL 138 mg/dL (<100)
== END ==
LOC: OD 09:42
PROVIDERS: ATTEND Physician Assistant
DX: I10 Essential (primary) hypertension (principal); R07.9 Chest pain, unspecified; E78.00 Pure hypercholesterolemia, unspecified; Z79.899 Other long term (current) drug therapy
CPT/HCPCS: 36415; 80048; 80061; 80076; 83735

== ENCOUNTER → 2018-09-10 | Outpatient (CLI) | payer SELFPAY ==
[2018-09-10 12:18] LABS: ANION GAP 11 (5-19); BLOOD UREA NITROGEN 14 mg/dL (7-20); CARBON DIOXIDE 30 mmol/L (22-30); CHLORIDE 102 mmol/L (98-107); GLUCOSE 98 mg/dL (75-110); POTASSIUM 4.6 mmol/L (3.6-5.0); SODIUM 143.1 mmol/L (137-145)
== END ==
LOC: LAB 11:14
PROVIDERS: ATTEND Physician Assistant
DX: I10 Essential (primary) hypertension (principal); Z79.899 Other long term (current) drug therapy
CPT/HCPCS: 36415; 80048

== ENCOUNTER → 2018-12-17 | Outpatient (CLI) | payer MEDICARE, BC ==
[2018-12-17 12:34] LABS: ANION GAP 10 (5-19); BLOOD UREA NITROGEN 15 mg/dL (7-20); CALCIUM 9.4 mg/dL (8.4-10.2); CARBON DIOXIDE 29 mmol/L (22-30); CHLORIDE 99 mmol/L (98-107); GLUCOSE 103 mg/dL (75-110); POTASSIUM 4.1 mmol/L (3.6-5.0)
== END ==
LOC: LAB 11:54
PROVIDERS: ATTEND Physician Assistant
DX: R06.02 Shortness of breath (principal); R00.1 Bradycardia, unspecified
CPT/HCPCS: 36415; 80048; 83735; 83880; 84443

== ENCOUNTER → 2019-03-23 | Outpatient (CLI) | payer MEDICARE, BC ==
[2019-03-23 11:36] LABS: ANION GAP 12 (5-19); BLOOD UREA NITROGEN 13 mg/dL (7-20); CALCIUM 9.6 mg/dL (8.4-10.2); CARBON DIOXIDE 29 mmol/L (22-30); CHLORIDE 103 mmol/L (98-107); GLUCOSE 94 mg/dL (75-110); POTASSIUM 4.2 mmol/L (3.6-5.0)
== END ==
LOC: LAB 10:38
PROVIDERS: ATTEND Physician Assistant
DX: I10 Essential (primary) hypertension (principal); Z79.899 Other long term (current) drug therapy
CPT/HCPCS: 36415; 80048

== ENCOUNTER → 2019-04-27 | Outpatient (CLI) | payer MEDICARE, BC ==
[2019-04-27 10:21] LABS: ANION GAP 9 (5-19); BLOOD UREA NITROGEN 14 mg/dL (7-20); CALCIUM 9.9 mg/dL (8.4-10.2); CARBON DIOXIDE 31 mmol/L (22-30); CHLORIDE 101 mmol/L (98-107); GLUCOSE 98 mg/dL (75-110); POTASSIUM 4.6 mmol/L (3.6-5.0)
== END ==
LOC: LAB 09:40
PROVIDERS: ATTEND Internal Medicine Cardiovascular Disease
DX: I10 Essential (primary) hypertension (principal); E87.6 Hypokalemia; Z79.899 Other long term (current) drug therapy
CPT/HCPCS: 36415; 80048

== ENCOUNTER → 2019-06-01 | Outpatient (CLI) | payer MEDICARE, BC ==
[2019-06-01 11:52] LABS: ALBUMIN 4.4 g/dL (3.5-5.0); ALKALINE PHOSPHATASE 80 U/L (38-126); ANION GAP 9 (5-19); ASPARTATE AMINO TRANSFERASE 22 U/L (14-36); BILIRUBIN,DIRECT 0.3 mg/dL (0.0-0.4); BILIRUBIN,TOTAL 0.7 mg/dL (0.2-1.3); BLOOD UREA NITROGEN 16 mg/dL (7-20); CALCIUM 9.4 mg/dL (8.4-10.2); CARBON DIOXIDE 31 mmol/L (22-30); CHLORIDE 101 mmol/L (98-107); CHOLESTEROL 224.87 mg/dL (0-200); GLUCOSE 95 mg/dL (75-110); POTASSIUM 4.7 mmol/L (3.6-5.0); TOTAL PROTEIN 7.7 g/dL (6.3-8.2); TRIGLYCERIDES 136 mg/dL (<150)
[2019-06-01 12:03] LABS: DIRECT LDL 177 mg/dL (<100)
== END ==
LOC: LAB 11:20
PROVIDERS: ATTEND Internal Medicine Cardiovascular Disease
DX: E78.2 Mixed hyperlipidemia (principal); I10 Essential (primary) hypertension; Z79.899 Other long term (current) drug therapy
CPT/HCPCS: 36415; 80048; 80061; 80076

== ENCOUNTER → 2019-09-07 | Outpatient (CLI) | payer MEDICARE, BC ==
[2019-09-07 10:39] LABS: ANION GAP 7 (5-19); BLOOD UREA NITROGEN 16 mg/dL (7-20); CALCIUM 9.8 mg/dL (8.4-10.2); CARBON DIOXIDE 32 mmol/L (22-30); CHLORIDE 100 mmol/L (98-107); GLUCOSE 105 mg/dL (75-110); POTASSIUM 4.5 mmol/L (3.6-5.0)
== END ==
LOC: OD 09:36
PROVIDERS: ATTEND Physician Assistant
DX: I10 Essential (primary) hypertension (principal); Z79.899 Other long term (current) drug therapy
CPT/HCPCS: 36415; 80048

== ENCOUNTER → 2019-09-27 | Outpatient (CLI) | payer MEDICARE, BC ==
[2019-09-27 10:05] LABS: ANION GAP 9 (5-19); BLOOD UREA NITROGEN 20 mg/dL (7-20); CALCIUM 9.8 mg/dL (8.4-10.2); CARBON DIOXIDE 31 mmol/L (22-30); CHLORIDE 99 mmol/L (98-107); GLUCOSE 112 mg/dL (75-110)
== END ==
LOC: OD 08:53
PROVIDERS: ATTEND Physician Assistant
DX: I10 Essential (primary) hypertension (principal); E87.6 Hypokalemia
CPT/HCPCS: 36415; 80048

== ENCOUNTER → 2020-04-10 | Outpatient (CLI) | payer MEDICARE, BC ==
[2020-04-10 10:21] LABS: ANION GAP 10 (5-19); BLOOD UREA NITROGEN 17 mg/dL (7-20); CALCIUM 10.1 mg/dL (8.4-10.2); CARBON DIOXIDE 30 mmol/L (22-30); CHLORIDE 100 mmol/L (98-107); GLUCOSE 108 mg/dL (75-110); POTASSIUM 4.8 mmol/L (3.6-5.0)
== END ==
LOC: OD 09:23
PROVIDERS: ATTEND Physician Assistant
DX: R07.9 Chest pain, unspecified (principal); I10 Essential (primary) hypertension
CPT/HCPCS: 36415; 80048